=== PATIENT | female | born 1990 | race African-American/Black ===

== ENCOUNTER 2020-06-27 19:44 | Emergency (ER) | payer OTHER ==
[~2020-06-27] VITALS: Ht 157.5 cm; Wt 77.1 kg
[2020-06-27 22:42] VITALS: BP 132/65
== END 2020-06-27 22:46 | disposition home or self-care (01) ==
LOC: ER 19:44
DX: M79.10 Myalgia, unspecified site (principal); V49.9XXA Car occupant (driver) (passenger) injured in unspecified traffic accident, initial encounter; Y93.89 Activity, other specified; Y92.89 Other specified places as the place of occurrence of the external cause; Y99.8 Other external cause status